=== PATIENT | female | born 1955 | race Caucasian/White ===

== ENCOUNTER → 2017-04-21 | Outpatient (CLI) | payer BC ==
[~2017-04-21] MED LIST: CATHETER FLUSH 10 ML SYR IV PRN; IOHEXOL 350 MG/ML 100 ML (OMNIPAQUE 350) VIAL IV ONE; NS 250 ML (IVPB) BAG IV ONE; RECEIVED CONTRAST (Hold Metformin) IV SCH
[2017-04-21 14:30] LABS: BUN/CREATININE RATIO 21; CREATININE SERUM 0.75 MG/DL (0.60-1.30); GFR ESTIMATED > 60
--- NOTE | 2017-04-21 15:07 | Diagnostic Imaging Report ---
PROCEDURE: CT neck soft tissue with contrast. TECHNIQUE: Multiple contiguous axial images were obtained through the neck after the administration of contrast. INDICATION: Painful swelling in the right soft palate region. FINDINGS: There is extensive swelling seen within the region of right palatine tonsil extending to the soft palate. This reaches approximately 2.9 x 2.6 x 3.8 cm and results in significant mass effect upon the oral pharynx. No definite pathologic adenopathy is seen in the neck. Largest right jugulodigastric lymph node reaches 1 cm in size. Great vessels of the neck demonstrate normal patency. There is mild diffuse cervical spondylosis. There is fatty change throughout the left parotid gland with moderate right parotid parenchymal density. Submandibular salivary glands are unremarkable. Thyroid gland is not visualized. IMPRESSION: 1. Abnormal swelling and mass effect along the right tonsillar pillar and parapharyngeal space extending to the level of the glottis. No focal low density is seen to indicate an abscess. This may represent cellulitis/tonsillitis. Possibility of tumor mass is not excluded. There is no definite pathologic adenopathy identified in the neck. 2. There is significant parotid gland asymmetry with fatty change throughout the left parotid gland. 3. Thyroid gland is not visualized. Dictated by: Dictated on workstation # [id number]
== END ==
LOC: RAD 13:52
PROVIDERS: ATTEND Nurse Practitioner Family
DX: K12.2 Cellulitis and abscess of mouth (principal); K11.8 Other diseases of salivary glands
CPT/HCPCS: 36415; 70491; 82565; 84520